=== PATIENT | female | born 1965 | race Caucasian/White ===

== ENCOUNTER 2016-11-13 19:57 | Outpatient (CLI) | payer OTHER ==
--- NOTE | 2016-11-14 03:57 | Ultrasound Report ---
EXAM: PELVIC ULTRASOUND EXAM DATE: 11/13/2016 09:18 PM. CLINICAL HISTORY: VERY LARGE UTERINE FIBROID IN POSTMENOPAUSAL WOMAN. COMPARISON: None. TECHNIQUE: Realtime transabdominal pelvic scan performed to identify the uterus and adnexa and as an overview of other pelvic structures, followed by transvaginal scan to provide greater detail of the u terus and adnexa, with static image documentation. FINDINGS: Uterus: 12.7 x 6.8 x 9.4 cm, volume 424 cc. Retroverted position. Enlarged and heterogeneous. Masses: Fundal right-sided fibroid measuring 6.1 x 6.6 x 6.6 cm. Posterior subserosal fibroid measuri ng 5.5 x 5.8 x 5.5 cm. Left lateral fibroid, possibly pedunculated, measuring 2.5 x 2.2 x 2.5 cm. Endometrium: 6 mm. Not well seen. Cervix: Nabothian cysts. Right Ovary: Not seen. Left Ovary: 3.4 x 2.0 x 2.3 cm, volume 8.1 cc. Not well seen. Free Fluid: None. Other: None. IMPRESSION: 1. Enlarged heterogeneous uterus measuring 424 cc with multiple fibroids measuring up to 6.6 cm. 2. Right ovary is not seen. Left ovary is suboptimally seen but appears to be normal in size. ROSSANA Referring Provider Line: [phone] SITE ID: [id number]
== END 2016-11-13 19:58 | disposition home or self-care (01) ==
LOC: DI 19:57
PROVIDERS: ATTEND Nurse Practitioner Family
DX: D25.9 Leiomyoma of uterus, unspecified (principal); D25.2 Subserosal leiomyoma of uterus
CPT/HCPCS: 76830; 76856

== ENCOUNTER 2016-11-23 12:40 | Outpatient (CLI) | payer OTHER ==
--- NOTE | 2016-12-03 15:12 | Mammography Report ---
DIGITAL SCREENING MAMMOGRAM: 11/23/2016 CLINICAL INDICATION: A 51-year-old nulliparous patient with family history of breast cancer for scre ening. COMPARISON: Films from [place], [place] dated 07/16/2015, 07/11/2014, 08/07/2013. TECHNIQUE: Routine CC and MLO projections were obtained of the breasts. FINDINGS: Scattered fibroglandular tissue is present within the breasts. There are no dominant denis s, suspicious microcalcifications, or secondary signs of malignancy. In comparison to the previous st udies, there are no significant changes. ASSESSMENT: NO MAMMOGRAPHIC EVIDENCE OF MALIGNANCY. NO SIGNIFICANT INTERVAL CHANGES. RECOMMENDATION: Screening mammography is recommended annually. BIRADS category 1 - negative. STANDARD QUALIFYING STATEMENTS 1. This examination was reviewed with the aid of Computed-Aided Detection (CAD). 2. A negative or benign imaging report should not delay biopsy if clinically suspicious findings are present. Consider surgical consultation if warranted. More than 5% of cancers are not identified by i maging. 3. Dense breasts may obscure an underlying neoplasm. JOB #: [id number] EXT JOB #:[id number]
== END 2016-11-23 12:41 | disposition home or self-care (01) ==
LOC: EDBD → DI 12:40
PROVIDERS: ATTEND Nurse Practitioner Family
DX: Z12.31 Encounter for screening mammogram for malignant neoplasm of breast (principal); Z80.3 Family history of malignant neoplasm of breast
CPT/HCPCS: 77067

== ENCOUNTER 2019-02-22 07:44 | Outpatient (CLI) | payer OTHER ==
--- NOTE | 2019-02-22 13:05 | Mammography Report ---
Reason: ROUTINE MAMMO Procedure Date: 02/22/2019 Accession Number: [id number] / [id number] Procedure: FAM - Screening Mammo w/Shane CPT Code: Final Report FULL RESULT: EXAM: Screening Mammo w/Shane DATE: 02/22/2019 8:17 AM CLINICAL HISTORY: The patient is an asymptomatic 53-year-old female. Nulliparous. No personal or family history of breast cancer. TECHNIQUE: (B) - Bilateral CC and MLO views were obtained. COMPARISON: 11/23/2016, 07/16/2015, 07/11/2014 PARENCHYMAL PATTERN: (D) - The breasts demonstrate heterogeneously dense fibroglandular parenchyma bilaterally. FINDINGS: The pattern of asymmetry is stable given positional variation and progressive involution. There are no suspicious masses, calcifications, or areas of distortion. IMPRESSION: Negative examination. BI-RADS category 1. RECOMMENDATION: (ANNUAL) - Recommend routine annual screening mammography. BI-RADS CATEGORY: (1) - Negative. STANDARD QUALIFYING STATEMENTS: A negative or benign imaging report should not preclude biopsy if clinically suspicious findings are present. Dense breasts may obscure an underlying neoplasm. This examination was reviewed with the aid of 3D breast imaging (tomosynthesis).
== END 2019-02-22 07:45 | disposition home or self-care (01) ==
LOC: DI 07:44
DX: Z12.31 Encounter for screening mammogram for malignant neoplasm of breast (principal)
CPT/HCPCS: 77063; 77067

== ENCOUNTER 2020-06-24 14:19 | Outpatient (CLI) | payer OTHER ==
--- NOTE | 2020-06-25 12:12 | Mammography Report ---
BILATERAL DIGITAL SCREENING MAMMOGRAM 3D/2D: 06/24/2020 CLINICAL: Routine screening. Family history of breast cancer. Comparison is made to exams dated: 02/22/2019 mammogram, 11/23/2016 mammogram, and 07/16/2015 mammogram - [facility]. There are scattered fibroglandular elements in both breasts. No significant masses, calcifications, or other findings are seen in either breast. There has been no significant interval change. IMPRESSION: NEGATIVE There is no mammographic evidence of malignancy. A 1 year screening mammogram is recommended. This exam was interpreted at Station ID: [id number]. NOTE: For mammograms, a report in lay terms will be sent to the patient. Approximately 15% of breast malignancies will not be visualized mammographically. In the management of a palpable breast mass, a negative mammogram must not discourage biopsy of a clinically suspicious lesion. Electronically Signed By: Richmond Levy M.D. slc/penrad:06/24/2020 16:01:31 ACR BI-RADS Category 1: Negative 3341F PARENCHYMAL PATTERN: (A) - The breast(s) demonstrate(s) scattered fibroglandular densities. BI-RADS CATEGORY: (1) - 1 RECOMMENDATION: (ANNUAL) - Recommend routine annual screening mammography. [id number] 1 year screening LATERALITY: (B)
== END 2020-06-24 14:20 | disposition home or self-care (01) ==
LOC: DI 14:19
DX: Z12.31 Encounter for screening mammogram for malignant neoplasm of breast (principal); Z80.3 Family history of malignant neoplasm of breast

== ENCOUNTER 2020-10-08 08:09 | Day surgery (SDC) | payer OTHER ==
[2020-10-08] MEDS ORDERED: LACTATED RINGERS 1,000 ML IV ONE ×2 (08:12→10:00)
[2020-10-08] MEDS ORDERED: MIDAZOLAM 2 MG/2 ML VIAL ONE (09:35)
[2020-10-08] MEDS ORDERED: fentaNYL 250 MCG/5 ML VIAL ONE (09:35)
[2020-10-08 10:50] VITALS: BP 117/80
== END 2020-10-08 08:10 | disposition home or self-care (01) ==
LOC: SDS 08:09
PROVIDERS: ATTEND Surgery
PROC: 0DBE8ZX Excision of Large Intestine, Via Natural or Artificial Opening Endoscopic, Diagnostic (ICD-10-PCS; 2020-10-08)
PROC: 0DBL8ZZ Excision of Transverse Colon, Via Natural or Artificial Opening Endoscopic (ICD-10-PCS; principal; 2020-10-08 09:15)
DX: R19.4 Change in bowel habit (principal); K63.5 Polyp of colon; K64.8 Other hemorrhoids; K21.9 Gastro-esophageal reflux disease without esophagitis
CPT/HCPCS: 45380; 81599; 83630; 87015; 87177; 87209; 87272; 87329; 87493; J3010; J7120; 87045; 87046

== ENCOUNTER 2021-08-11 11:32 | Outpatient (CLI) | payer OTHER ==
--- NOTE | 2021-08-12 09:17 | Mammography Report ---
BILATERAL DIGITAL SCREENING MAMMOGRAM 3D/2D: 08/11/2021 CLINICAL: Routine screening. Family history of breast cancer. Comparison is made to exams dated: 06/24/2020 mammogram, 02/22/2019 mammogram, 11/23/2016 mammogram, 06/17 mammogram, and 08/07/2013 ultrasound - [facility]. There are scattered fibro glandular elements in both breasts. No significant masses, calcifications, or other findings are seen in either breast. There has been no significant interval change. IMPRESSION: NEGATIVE There is no mammographic evidence of malignancy. A 1 year screening mammogram is recommended. This exam was interpreted at Station ID: [id number]. NOTE: For mammograms, a report in lay terms will be sent to the patient. Approximately 15% of breast malignancies will not be visualized mammographically. In the management of a palpable breast mass, a negative mammogram must not discourage biopsy of a clinically suspicious lesion. Electronically Signed By: Hitesh Lynn M.D., jr/poonam:08/11/2021 12:56:27 ACR BI-RADS Category 1: Negative 3341F PARENCHYMAL PATTERN: (A) - The breast(s) demonstrate(s) scattered fibroglandular densities. BI-RADS CATEGORY: (1) - 1 RECOMMENDATION: (ANNUAL) - Recommend routine annual screening mammography. [id number] 1 year screening LATERALITY: (B)
== END 2021-08-11 11:33 | disposition home or self-care (01) ==
LOC: DI 11:32
DX: Z12.31 Encounter for screening mammogram for malignant neoplasm of breast (principal); Z80.3 Family history of malignant neoplasm of breast

== ENCOUNTER 2022-04-27 12:17 | Outpatient (CLI) | payer OTHER ==
--- NOTE | 2022-04-28 10:51 | Ultrasound Report ---
LIMITED ULTRASOUND OF LEFT BREAST: 04/27/2022 CLINICAL: Palpable left breast lump by physician. Comparison is made to exams dated: 04/27/2022 mammogram, 08/11/2021 mammogram, 06/24/2020 mammogram, 02/22/2019 mammogram, 11/23/2016 mammogram, and 07/16/2015 mammogram - [facility]. Ultrasound of the left breast 11-12 o'clock region was performed. Lopez scale images of the real-michael e examination were reviewed. IMPRESSION: NEGATIVE There is no sonographic evidence of malignancy. There are no abnormalities seen in the left breast to correspond with the areas of clinical concern a t 11 and 12 o'clock, however, clinical correlation and clinical followup are recommended. Return to annual mammogram screening schedule is recommended. Patient is also at elevated lifetime risk for breast cancer and MRI screening is recommended. This exam was interpreted at Station ID: [id number]. Electronically Signed By: Larry Mcmahan M.D. lc/:04/27/2022 13:17:09 letter sent: No_Letter Ultrasound BI-RADS: 1 Negative BI-RADS CATEGORY: (1) - 1 Mammogram [id number] return to screening LATERALITY: (B)
--- NOTE | 2022-04-28 10:51 | Mammography Report ---
UNILATERAL LEFT DIGITAL DIAGNOSTIC MAMMOGRAM 3D/2D: 04/27/2022 CLINICAL: Palpable left breast lump by physician. Comparison is made to exams dated: 08/11/2021 mammogram, 06/24/2020 mammogram, 02/22/2019 mammogram, 11/23/2016 mammogram, and 07/16/2015 mammogram - [facility]. There are scattered areas of fibroglandular density in the left breast (category b / 25%-50% glandula r tissue). No significant masses, calcifications, or other findings are seen in the breast. IMPRESSION: INCOMPLETE: NEEDS ADDITIONAL IMAGING EVALUATION There is no abnormality seen in the left breast to correspond with the area of clinical concern, patel leonel, ultrasound is recommended. Based on Tyrer-Cuzick model (a risk assessment model), the patient's lifetime risk is 21.9% and her 1 0 year risk is 7.4%. If a patient has an elevated risk, a more comprehensive evaluation should be con sidered and/or a referral to a genetic counselor. The [place] [employer], [employer], and NCCN Guidelines advise the consideration of Breast MRI as an adjunct to screening mammog quique in patients whose "Lifetime risk to develop breast cancer" is 20% or higher. This exam was interpreted at Station ID: [id number]. NOTE: For mammograms, a report in lay terms will be sent to the patient. Approximately 15% of breast malignancies will not be visualized mammographically. In the management of a palpable breast mass, a negative mammogram must not discourage biopsy of a clinically suspicious lesion. Electronically Signed By: Larry Mcmahan M.D. lc/:04/27/2022 13:16:17 ACR BI-RADS Category 0: Incomplete 3340F PARENCHYMAL PATTERN: (A) - The breast(s) demonstrate(s) scattered fibroglandular densities. BI-RADS CATEGORY: (0) - 0 Ultrasound [id number] Immediate follow-up LATERALITY: (B)
== END 2022-04-27 12:18 | disposition home or self-care (01) ==
LOC: DI 12:17
PROVIDERS: ATTEND Registered Nurse
DX: N63.22 Unspecified lump in the left breast, upper inner quadrant (principal)